=== PATIENT | male | born 1965 | race Caucasian/White ===

== ENCOUNTER → 2021-05-26 | Outpatient (CLI) | payer OTHER ==
[~2021-05-26] MED LIST: ATOR10TA PO; FENO120T5 PO; TRAM200T17 PO
== END | disposition home or self-care (01) ==
LOC: STAR 13:46
PROVIDERS: ATTEND Surgery
DX: Z20.822 Contact with and (suspected) exposure to COVID-19 (principal)
CPT/HCPCS: U0003; U0005

== ENCOUNTER 2021-05-30 13:30 | Day surgery (SDC) | payer OTHER ==
[~2021-05-30] VITALS: Ht 188 cm; Wt 103.1 kg
[~2021-05-30 13:30] MED LIST changes: +FENTANYL PF 250 MCG/5ML ONE; +MIDAZOLAM 1 MG/ML, 2ML ONE
[2021-05-30] MEDS ORDERED: BUPIVACAINE/PF 0.25% ONE (13:50)
[2021-05-30] MEDS ORDERED: CHLORHEXIDINE 15 ML UDC ONE (13:56)
[2021-05-30] MEDS ORDERED: HYDR-2214 PO ×2 (13:59→14:00)
[2021-05-30] MEDS ORDERED: ONDA4TAB7 PO (13:59)
[2021-05-30] MEDS ORDERED: LACTATED RINGERS 1,000 ML IV SCH (14:00)
[2021-05-30] MEDS ORDERED: ACETAMINOPHEN 325 MG TABLET PO PRN (14:00)
[2021-05-30] MEDS ORDERED: PROMETHAZINE 25 MG/ML, 1ML IVPush PRN (14:00)
[2021-05-30] MEDS ORDERED: CHLORHEXIDINE 15 ML UDC PO ONE (14:00)
[2021-05-30] MEDS ORDERED: LABETALOL 5MG/ML, 20ML IV PRN (14:00)
[2021-05-30] MEDS ORDERED: OXYcodone 5 MG/5 ML ORAL.SOL UDC PO PRN (14:00)
[2021-05-30] MEDS ORDERED: LORazepam 2 MG/ML, 1ML IVPush PRN (14:00)
[2021-05-30] MEDS ORDERED: ALBUTEROL SULFATE 2.5 MG/3 ML NPPB PRN (14:00)
[2021-05-30] MEDS ORDERED: HYDROmorphone 1 MG/ML, 1ML INJ IVPush PRN (14:00)
[2021-05-30] MEDS ORDERED: MEPERIDINE/PF 25MG/0.5ML IVPush PRN (14:00)
[2021-05-30] MEDS ORDERED: CEFOTETAN 2 GM ONE (14:09)
[2021-05-30] MEDS ORDERED: KETOROLAC 30 MG/1 ML ONE (15:18)
[2021-05-30] MEDS ORDERED: LIDOCAINE-MPF 2% ,5ML ONE (15:18)
[2021-05-30] MEDS ORDERED: ROCURONIUM 10MG/ML,5ML ONE (15:22)
[2021-05-30] MEDS ORDERED: PROPOFOL 10 MG/ML, 20ML ONE (15:22)
[2021-05-30] MEDS ORDERED: GLYCOPYRROLATE 0.2MG/1ML, 5ML ONE (15:22)
[2021-05-30] MEDS ORDERED: ONDANSETRON 2MG/ML, 2ML ONE (15:22)
[2021-05-30] MEDS ORDERED: NEOSTIGMINE 1 MG/ML, 10ML ONE (15:22)
[2021-05-30] MEDS ORDERED: DEXAMETHASONE 4 MG/ML, 1ML ONE (15:22)
[2021-05-30] MEDS ORDERED: HYDROmorphone 1 MG/ML, 1ML INJ ONE (15:25)
[2021-05-30] MEDS ORDERED: HYDROcodone/APAP 5/325 TABLET PO PRN (15:30)
[2021-05-30] MEDS ORDERED: morphine SULFATE 10 MG/ML, 1ML IVPush PRN (15:30)
[2021-05-30] MEDS ORDERED: ONDANSETRON 2MG/ML, 2ML IVPush PRN (15:30)
[2021-05-30] MEDS ORDERED: KETOROLAC 30 MG/1 ML IVPush PRN (15:30)
[2021-05-30] MEDS ORDERED: OXYcodone 5 MG/5 ML ORAL.SOL UDC ONE (16:02)
[2021-05-30] MEDS ORDERED: FENTANYL PF 100 MCG/2ML ONE (16:02)
[2021-05-30] MEDS: FENTANYL PF 100 MCG/2ML IV PRN ×2 (16:07→16:12)
== END 2021-05-30 18:30 | disposition home or self-care (01) ==
LOC: OR 13:30
PROVIDERS: ATTEND Surgery
DX: K42.0 Umbilical hernia with obstruction, without gangrene (principal); M62.08 Separation of muscle (nontraumatic), other site; K66.0 Peritoneal adhesions (postprocedural) (postinfection); E78.5 Hyperlipidemia, unspecified; Z79.899 Other long term (current) drug therapy
CPT/HCPCS: 49653; C1781; J1100; J1170; J1885; J2250; J2405; J2704; J2710; J3010; J7120; S2900